=== PATIENT | female | born 1955 | race Caucasian/White ===

== ENCOUNTER 2017-03-30 10:57 | Inpatient (IN) | payer BC ==
--- NOTE | 2017-03-27 15:25 | HP ---
HISTORY OF PRESENT ILLNESS: Ms. Vega is a 61-year-old that presented with neck pain associated with radiating pain, numbness and tingling in the left C7 dermatome. She has had mild pain for years, but for the last 2 months that has gotten significantly worse. She feels like she has lost strength in the left arm and hand. She has done physical therapy and has had several cervical injections with pain management group in [place]. She has gotten very little relief from the cervical injections. She has also been treated with chiropractor, which did not seem to help. The pain in the left arm is made worse with any activity and lifting objects in her left hand. The pain is somewhat better when she puts ice on her neck. MRI of the cervical spine done at [facility]. REVIEW OF SYSTEMS: Ten-point review of systems was completed and it is otherwise negative unless stated in the above HPI. PAST MEDICAL HISTORY: Hypothyroidism, migraines and ulcerative colitis. PAST SURGICAL HISTORY: Total hysterectomy in 1990. HOSPITALIZATIONS: Only for surgeries. FAMILY HISTORY: Father is alive. Mother is , diagnosed with hypertension and heart disease. Siblings are alive. SOCIAL HISTORY: The patient is a nonsmoker. She is retired, and has no children. MEDICATIONS: Taking; 1. Mesalamine 1.2 grams tablet delayed release orally. 2. Levothyroxine sodium 75 mg tablet 1 tablet on an empty stomach in the morning orally once a day. 3. Duloxetine HCL 30 mg capsule delayed release particles 1 capsule orally twice a day. 4. Montelukast sodium 10 mg tablet 1 tablet in the evening orally once a day. 5. Symbicort 80/4.5 mcg ACT aerosol 2 puffs inhalation twice a day. 6. Zolpidem tartrate ER 12.5 mg tablet extended release 1 tablet at bedtime as needed orally once a day. 7. Hydrocodone/acetaminophen 10/325 tablet as needed orally q.6 hours. 8. Tramadol HCL ER 200 mg capsule delayed release 24-hour 1 tablet orally once a day. 9. Ondansetron. 10. Zofran 4 mg disintegrating 1 tablet under the tongue and allow to dissolve , orally q.8 hours. ALLERGIES: No known drug allergies. PHYSICAL EXAMINATION: HEENT: Normocephalic and atraumatic. Hearing is intact. Moist mucous membranes. Trachea midline. No masses noted. Eyes: Pupils are equal and reactive to light. Extraocular muscles are intact. Sclerae are white and nonicteric. CARDIOVASCULAR: The patient has regular rate and rhythm. Normal S1 and S2 heart sounds. Appears to have no distal cyanosis or clubbing. RESPIRATORY: The patient has bilateral symmetric chest rise. Appears to be in no shortness breath. MUSCULOSKELETAL: Upper extremity, 4/5 strength in the left biceps, full range of motion. Sensory deficit in the left C6 dermatome. RESPIRATORY: Even respirations, good effort and all lung pretty sound clear with no wheezing or crackles. NEUROLOGIC: Cranial nerves II-XII are grossly intact. Speech is fluent. She answers my questions appropriately. She has normal gait and station. ASSESSMENT: 1. Cervical radiculopathy at C6. 2. Neck pain. PLAN: Dr. Betancur offered anterior cervical diskectomy and fusion of C5-C6 to help relieve her pain. We discussed the risks, benefits and possible complications of surgery. She fully understands the risks of surgery and is willing to proceed with surgery. CAT[place]INA
[2017-03-30 11:40] LABS: #Eosinphils 0.1 thou/uL (0.0-0.7); #Lymphocytes 1.7 thou/uL (1.20-3.40); #Monocytes 0.5 thou/uL (0.11-0.59); #Neutrophils 6.6 thou/uL (1.40-6.50); %Basophils 0.5 % (0.0-1.0); %Eosinophils 1.1 % (0.0-10.0); %Lymphocytes 18.6 % (21.0-51.0); Hematocrit 45.4 % (36.0-47.0); Mean Platelet Volume 7.9 fL (7.4-10.4); Red Blood Cell (RBC) Count 4.76 mill/uL (4.20-5.40); White Blood Cell (WBC) Count 8.9 thou/uL (4.8-10.8)
[2017-03-30 11:48] LABS: PTT 29.7 SEC (22.9-36.1); Prothrombin Time 13.7 SEC (12.0-14.7)
[2017-03-30] MEDS ORDERED: Midazolam HCl 2 mg/2 ml Vial ONE ×2 (12:12→12:28)
[2017-03-30] MEDS ORDERED: Fentanyl 250 MCG/5 ML VIAL ONE (12:12)
[2017-03-30] MEDS ORDERED: Sodium Chloride 0.9% 10 ML ONE (12:13)
[2017-03-30] MEDS ORDERED: Thrombin 5000 UNITS/5 ML VIAL ONE (12:13)
[2017-03-30] MEDS ORDERED: Dexamethasone 20 MG/5 ML VIAL ONE (12:42)
[2017-03-30] MEDS ORDERED: ePHEDrine/0.9% NaCl/PF SYRINGE 50 mg/10 ml ONE (12:42)
[2017-03-30] MEDS ORDERED: Lidocaine 1% PF 5 ML VIAL ONE (12:42)
[2017-03-30] MEDS ORDERED: Glycopyrrolate 0.2 MG/ML 5 ML SYRINGE ONE (12:42)
[2017-03-30] MEDS ORDERED: Propofol 200 MG/20 ML VIAL ONE ×2 (12:42)
[2017-03-30] MEDS ORDERED: Ondansetron HCl/PF 4 MG/2 ML Vial ONE (12:42)
[2017-03-30] MEDS ORDERED: HYDROmorphone 2 MG/ML VIAL SLOW IVP PRN (14:32)
[2017-03-30] MEDS ORDERED: Promethazine HCl 25 MG/ML VIAL SLOW IVP PRN (14:32)
[2017-03-30] MEDS ORDERED: Meperidine HCl/PF 25 MG/ML VIAL SLOW IVP PRN (14:32)
[2017-03-30] MEDS ORDERED: Morphine Sulfate 2 MG/ML SYRINGE SLOW IVP PRN (14:32)
[2017-03-30] MEDS ORDERED: Acetaminophen/Codeine 30-300mg Tablet PO PRN ×2 (14:49)
[2017-03-30] MEDS ORDERED: HYDROcodone/Acetaminophen 10/325 mg Tablet PO PRN ×2 (14:49)
[2017-03-30] MEDS ORDERED: Bisacodyl 10 MG SUPP PR PRN (14:49)
[2017-03-30] MEDS ORDERED: Prochlorperazine 10 MG/2 ML VIAL IM PRN (14:49)
[2017-03-30] MEDS ORDERED: HYDROcodone/Acetaminophen 7.5/325 mg Tablet PO PRN (14:49)
[2017-03-30] MEDS ORDERED: Ondansetron HCl/PF 4 MG/2 ML Vial IVP PRN (14:49)
[2017-03-30] MEDS ORDERED: Zolpidem Tartrate 5 MG TAB PO PRN (14:49)
[2017-03-30] MEDS ORDERED: Milk Of Magnesia 30 ML UDCUP PO PRN (14:49)
[2017-03-30] MEDS ORDERED: diphenhydrAMINE HCl 25 MG CAP PO PRN (14:49)
[2017-03-30] MEDS ORDERED: traMADol HCl 50 MG TAB PO PRN (14:49)
[2017-03-30] MEDS ORDERED: Promethazine HCl 12.5 MG SUPP PR PRN (14:49)
[2017-03-30] MEDS ORDERED: Cyclobenzaprine 10 MG TAB PO PRN (14:49)
[2017-03-30] MEDS ORDERED: Acetaminophen 650 MG Suppository PR PRN (14:49)
[2017-03-30] MEDS ORDERED: Acetaminophen 325 MG TAB PO PRN (14:49)
[2017-03-30] MEDS ORDERED: tiZANidine HCl 4 MG TAB PO PRN (14:49)
[2017-03-30] MEDS ORDERED: Promethazine HCl 25 MG/ML VIAL IM PRN (14:49)
[2017-03-30] MEDS ORDERED: Fleet Enema 133 ML BOT PR PRN (14:49)
[2017-03-30] MEDS ORDERED: Mag-Al 1200 mg/1200 mg/30 ML UDCUP PO PRN (14:49)
[2017-03-30] MEDS ORDERED: diphenhydrAMINE HCl 50 MG/ML 1 ML VIAL IVP PRN (14:49)
[2017-03-30] MEDS ORDERED: Sodium Chloride 0.9% 1,000 ML IV SCH (15:00)
[2017-03-30] MEDS ORDERED: Scopolamine 1.5 mg/72 hour Patch TD SCH (15:00)
[2017-03-30] MEDS ORDERED: Fentanyl 100 MCG/2 ML VIAL ONE ×2 (15:02→15:26)
[2017-03-30] MEDS ORDERED: Ketorolac Tromethamine 30 MG/ML VIAL ONE (15:08)
[2017-03-30] MEDS: HYDROcodone/Acetaminophen 7.5/325 mg Tablet PO PRN (18:31)
--- NOTE | 2017-03-30 19:08 | OP ---
DATE OF PROCEDURE: 03/30/2017 SURGEON: Mary Betancur M.D. COMMUNICATIONS TECHNICIAN: None. PREOPERATIVE INDICATION: Treat pain, prevent neurological deterioration. PREOPERATIVE DIAGNOSES: Right C5-C6 intervertebral disk herniation and foraminal stenosis with C6 r adiculopathy. POSTOPERATIVE DIAGNOSES: Right C5-C6 intervertebral disk herniation and foraminal stenosis with C6 radiculopathy. OPERATIVE PROCEDURE: Anterior cervical diskectomy, intravertebral arthrodesis, placement of interve rtebral biomechanical device, local morselized autograft, morselized allograft, and anterior cervica l plating C5-6, and operating microscope. PREOPERATIVE MEDICATION: Ancef 2 grams IV. DRAIN NUMBER: Zero. DRAIN TYPE: None. OPERATIVE DICTATION: The patient was brought to the operating room. General endotracheal anesthesi a was induced. The patient was positioned supine on the operating table with her head supported by a donut shaped head rest. A lateral fluoro radiograph was used to plan our incision. The right jj e of the neck was sterilely prepped and draped. We opened our incision with a 10 blade knife and co ntrolled bleeding with bipolar cautery. We dissected sharply to the platysma and cut this muscle in line with our incision. We continued dissecting medial to the sternocleidomastoid, lateral to the trachea and esophagus all the way down to the prevertebral space. We placed a marker at C5-6 and to ok a lateral fluoro radiograph to confirm the level upon which we were operating. We then elevated the longus colli muscles off the anterior surface of C5 and C6, and placed a self-retaining retracto r beneath them. Distraction pins were placed at C5 and C6 and we distracted across the intervening interspace. We incised the interspace with a 15 blade knife and removed disk contents using curette s and rongeurs. The operating microscope was brought into the field. Under microscopic magnification and using microsurgical techniques, we removed the remainder of the intervertebral disk. We accessed the ventral epidural space with a micro curet and removed the post erior longitudinal ligament, posterior osteophytes and all the disk from one nerve root all the way to the other across the entire intervertebral space so that the dura was well decompressed. We turn ed our attention to arthrodesis. With the curet and a bone rasp, we prepared the endplates for grafting. We measured the height of t he interspace to 6 mm. A 6 mm PEEK graft was brought into the field. Posterior osteophyte and ante rior osteophytes were removed during the decompression were carefully cleaned the soft tissue attach ments and the bone was morselized into demineralized bone matrix as our fusion substrate. This subs trate was placed in the center of the PEEK graft and PEEK graft was advanced into the interspaces to the appropriate depth under radiographic guidance. We removed the distraction pins and took the op erating microscope out of the field. A 12 mm anterior cervical plate was brought into the field. W e drilled pilot safety inspector holes through the plate and affixed the plate to the vertebral segments of C5 and C6 with 14 mm screws. Variable angle screws were used above and fixed angle screws used below. We en gaged the locking mechanism over each of the 4 screws. AP and lateral fluoro radiographs confirmed adequate position of instrumentation. We irrigated copiously with bacitracin irrigation. Hemostasi s was excellent. We closed the wound in anatomic layers and we applied a sterile dressing. This wa s a clean case and no contamination.
[2017-03-30] MEDS: traMADol HCl 50 MG TAB PO PRN (21:38)
[2017-03-31] MEDS: HYDROcodone/Acetaminophen 7.5/325 mg Tablet PO PRN ×3 (02:06→12:40)
[2017-03-31] MEDS: traMADol HCl 50 MG TAB PO PRN (09:09)
[2017-03-31 11:38] VITALS: BP 110/66; TEMP 98.5
--- NOTE | 2017-03-31 15:03 | DIS ---
SUMMARY: Ms. Vega is a 61-year-old woman, who was admitted to [facility] on 03/30/2017 in the postoperative period by Dr. Betancur. She was discharged the following day on 03/31/2017. ADMISSION DIAGNOSIS: Status post cervical fusion. Her hospital course was not complicated by any significant event nor any additional consults or imag ing ordered. She was sent home in good condition with outpatient followup plan. Robert Zeng PA-C, dictating for Elton Baumann M.D.
== END 2017-03-31 14:49 | disposition home or self-care (01) | DRG 473 ==
LOC: SDC 10:57 → SJJU 15:20
PROVIDERS: ADMIT Neurological Surgery; ATTEND Neurological Surgery
PROC: 0RG2070 Fusion of 2 or more Cervical Vertebral Joints with Autologous Tissue Substitute, Anterior Approach, Anterior Column, Open Approach (ICD-10-PCS; principal; 2017-03-30)
PROC: 01N10ZZ Release Cervical Nerve, Open Approach (ICD-10-PCS; 2017-03-30)
PROC: 0RB30ZZ Excision of Cervical Vertebral Disc, Open Approach (ICD-10-PCS; 2017-03-30)
DX: M50.122 Cervical disc disorder at C5-C6 level with radiculopathy (principal); M48.02 Spinal stenosis, cervical region; E03.9 Hypothyroidism, unspecified; Z82.49 Family history of ischemic heart disease and other diseases of the circulatory system
CPT/HCPCS: 36415; 76001; 85025; 85610; 85730; 96374; A4216; C1713; J0131; J1100; J1170; J1885; J2001; J2250; J2405; J2704; J3010; J3490